=== PATIENT | female | born 1990 | race Caucasian/White ===

== ENCOUNTER → 2019-08-05 | Outpatient (CLI) | payer BC ==
[2019-08-05 10:07] LABS: INR 0.92 (0.85-1.15); PARTIAL THROMBOPLASTIN TIME 25.6 SEC (26.3-35.5); PROTHROMBIN TIME 9.7 SEC (9.6-11.6)
--- NOTE | 2019-08-05 11:00 | NUR ---
U/S GUIDED BIOPSY/FNA LEFT THYROID NODULE PROCEDURE PERFORMED BY DR. CORONADO. PUNCTURE SITE LEFT SIDE NECK. PATIENT TOLERATED PROCEDURE WELL. SPECIMEN X 3 COLLECTED. END OF PROCEDURE AT 1115. BIOPSY NEEDLE REMOVED AND DRESSING APPLIED. NO BLEEDING NOTED. DISCHARGE INSTRUCTIONS GIVEN TO PATIENT AND VERBALIZED UNDERSTANDING. DISCHARGED AT 1135 AMBULATORY. PT STABLE, AAO X 3, WITH NO C/O PAIN.
== END ==
LOC: RAH 09:19
PROVIDERS: ATTEND Otolaryngology Plastic Surgery within the Head & Neck
DX: O99.280 Endocrine, nutritional and metabolic diseases complicating pregnancy, unspecified trimester (principal); E04.1 Nontoxic single thyroid nodule
CPT/HCPCS: 10005; 36415; 85610; 85730; 88172; A4215; 60100; 76942

== ENCOUNTER 2019-08-24 05:02 | Emergency (ER) | payer BC ==
[2019-08-24 05:18] LABS: BASOPHILS % (AUTO) 0.3 % (0.0-5.0); EOSINOPHILS % (AUTO) 1.4 % (0.0-8.0); HEMATOCRIT 34.5 % (36-48); LYMPHOCYTES % (AUTO) 30.3 % (21.0-51.0); MEAN CORPUSCULAR HEMOGLOBIN 30.4 pg (27.0-33.0); MEAN CORPUSCULAR HGB CONC 33.6 g/dL (32.0-36.0); MEAN CORPUSCULAR VOLUME 90.3 fL (79-99); MONOCYTES % (AUTO) 8.8 % (3.0-13.0); NEUTROPHILS % (AUTO) 58.7 % (40.0-77.0); PLATELET COUNT (AUTO) 331 K/uL (130-400); RED BLOOD CELL COUNT(AUTO) 3.82 MIL/uL (4.00-5.50); RED CELL DISTRIBUTION WIDTH 12.6 % (11.0-15.5); WHITE BLOOD COUNT (AUTO) 10.9 K/uL (4.8-10.8)
[2019-08-24 05:26] LABS: CREATININE 0.5 mg/dL (0.5-1.5); POTASSIUM 3.6 mmol/L (3.5-5.1)
[2019-08-24 05:30] LABS: ALBUMIN 3.2 g/dL (3.5-5.0); BILIRUBIN,TOTAL 0.3 mg/dL (0.2-1.0); TOTAL PROTEIN, SERUM 6.8 g/dL (6.0-8.3)
[2019-08-24 05:32] LABS: INR 0.9 (0.85-1.15); PARTIAL THROMBOPLASTIN TIME 26.7 SEC (26.3-35.5); PROTHROMBIN TIME 9.5 SEC (9.6-11.6)
[2019-08-24 05:33] LABS: APPEARANCE,URINE Turbid (CLEAR); BILIRUBIN,URINE Negative (NEGATIVE); COLOR,URINE Yellow (YELLOW); GLUCOSE, URINE (UA) Negative (NEGATIVE); KETONES,URINE Negative (NEGATIVE); LEUKOCYTE ESTERASE ,URINE Negative (NEGATIVE); NITRATE,URINE Negative (NEGATIVE); OCCULT BLOOD,URINE Negative (NEGATIVE); PH,URINE 7.5 (5.0-8.0); PROTEIN,URINE Negative (NEGATIVE)
[2019-08-24 05:48] LABS: BACTERIA,URINE Few /HPF (None Seen); RBC,URINE 0-1 /HPF (0-1); WBC,URINE 0-1 /HPF (0-1)
[2019-08-24 05:49] LABS: AMORPHOUS SEDIMENT,UR Many /LPF (None Seen)
== END 2019-08-24 06:26 | disposition home or self-care (01) ==
LOC: EDH 05:02
DX: O26.892 Other specified pregnancy related conditions, second trimester (principal); R07.89 Other chest pain; R06.02 Shortness of breath; Z79.899 Other long term (current) drug therapy; Z3A.26 26 weeks gestation of pregnancy
CPT/HCPCS: 36415; 80053; 81001; 83690; 84484; 85025; 85378; 85610; 85730; 93005

== ENCOUNTER 2019-11-19 06:12 | Inpatient (IN) | payer BC ==
[~2019-11-19] VITALS: Ht 167.6 cm; Wt 73.5 kg
[2019-11-19] MEDS ORDERED: LACTATED RINGERS 1000ML 1,000 ML IV PRN (06:42)
[2019-11-19] MEDS ORDERED: OXYTOCIN 10 USP UNITS/ML 20 UNIT in LACTATED RINGERS 1000ML 1,000 ML IV SCH (06:45)
[2019-11-19 07:08] LABS: APPEARANCE,URINE Clear (CLEAR); BILIRUBIN,URINE Negative (NEGATIVE); COLOR,URINE Yellow (YELLOW); GLUCOSE, URINE (UA) Negative (NEGATIVE); KETONES,URINE Negative (NEGATIVE); LEUKOCYTE ESTERASE ,URINE Negative (NEGATIVE); NITRATE,URINE Negative (NEGATIVE); OCCULT BLOOD,URINE Negative (NEGATIVE); PH,URINE 6.5 (5.0-8.0); PROTEIN,URINE Negative (NEGATIVE); UROBILINOGEN,URINE 0.2 mg/dL (0.2-1.0)
[2019-11-19] MEDS ORDERED: OXYTOCIN-LR 20 UNITS/1000 ML 1,000 ML IV ONE (07:26)
[2019-11-19 07:28] LABS: HEMATOCRIT 33.9 % (36-48); MEAN CORPUSCULAR HEMOGLOBIN 30.2 pg (27.0-33.0); MEAN CORPUSCULAR HGB CONC 33.9 g/dL (32.0-36.0); PLATELET COUNT (AUTO) 283 K/uL (130-400); RED BLOOD CELL COUNT(AUTO) 3.81 MIL/uL (4.00-5.50); RED CELL DISTRIBUTION WIDTH 12.9 % (11.0-15.5); WHITE BLOOD COUNT (AUTO) 14.4 K/uL (4.8-10.8)
[2019-11-19] MEDS ORDERED: OXYTOCIN-LR 20 UNITS/1000 ML 1,000 ML IV SCH (07:30)
[2019-11-19] MEDS ORDERED: ROPIVACAINE 0.2% 100ML VIAL 100 ML EP SCH (08:45)
[2019-11-19] MEDS ORDERED: PROMETHAZINE HCL 25 MG/ML 1ML AMPULE IM PRN (08:45)
[2019-11-19] MEDS ORDERED: EPHEDRINE SULFATE 50 MG/ML AMPULE IVP PRN (08:45)
[2019-11-19] MEDS ORDERED: LACTATED RINGERS 500 ML 500 ML IV PRN (08:45)
[2019-11-19] MEDS ORDERED: NALOXONE HCL 0.4 MG/1 ML ML IV PRN (08:45)
[2019-11-19] MEDS ORDERED: MEPERIDINE-PF 25 MG/ML SYG IVP PRN (08:45)
[2019-11-19] MEDS ORDERED: LIDOCAINE HCL 2% 20ML ONE (17:00)
[2019-11-19] MEDS ORDERED: ACETAMINOPHEN 325 MG TAB PO PRN (17:45)
[2019-11-19] MEDS ORDERED: MEASLES/MUMPS/RUBELLA VACCINE, LIVE 0.5 ML/VIAL SQ PRN (17:45)
[2019-11-19] MEDS ORDERED: ACETAMINOPHEN-CODEINE 300/30MG TAB PO PRN (17:45)
[2019-11-19] MEDS ORDERED: LANOLIN 30GM OINTMENT TP PRN (17:45)
[2019-11-19] MEDS ORDERED: WITCH HAZEL 1 PAD TP PRN (17:45)
[2019-11-19] MEDS: OXYTOCIN-LR 20 UNITS/1000 ML 1,000 ML IV SCH ×2 (17:45→18:24)
[2019-11-19] MEDS ORDERED: DIPH,PERTUSS(ACELL),TET VAC/PF 0.5 ML VIAL IM PRN (17:45)
[2019-11-19] MEDS ORDERED: BENZOCAINE/LANOLIN/ALOE VERA 60 ML AEROSOL TP PRN (17:45)
[2019-11-19] MEDS: IBUPROFEN 600 MG TABLET PO PRN (18:00)
[2019-11-19 19:25] VITALS: BP 131/75
[2019-11-19] MEDS: DOCUSATE SODIUM 100 MG CAP PO SCH (20:18)
[2019-11-20 00:02] VITALS: BP 133/81
[2019-11-20] MEDS: IBUPROFEN 600 MG TABLET PO PRN ×2 (00:22→09:30)
[2019-11-20] MEDS ORDERED: CETI10CA5 PO (01:05)
[2019-11-20] MEDS ORDERED: ACET325C6 PO (01:05)
[2019-11-20] MEDS ORDERED: PREN-196 PO (01:05)
[2019-11-20 03:19] VITALS: BP 123/66
[2019-11-20 07:40] VITALS: BP 129/72
--- NOTE | 2019-11-20 08:00 | NUR ---
DR. MCKEON ROUNDING ON PATIENT. DISCHARGE POC DISCUSSED. PATIENT MAY BE DISCHARGED THIS AFTERNOON IF PATIENT DESIRES AND BABY GOES HOME.
[2019-11-20 08:10] LABS: HEPATITIS Bs ANTIGEN SCREEN P Negative (Negative)
[2019-11-20] MEDS: DOCUSATE SODIUM 100 MG CAP PO SCH (09:27)
--- NOTE | 2019-11-20 09:30 | NUR ---
PATIENT REEDUCATED ON SITZ BATH. OFFERED PATIENT TO ASSIST WITH SITZ BATH. PATIENT DECLINED STATING SHE WILL DO IT LATER. ADVISED PATIENT TO CALL FOR ASSISTANCE. PATIENT VOICED UNDERSTANDING.
[2019-11-20 12:05] VITALS: BP 135/80
[2019-11-20 16:24] VITALS: BP 126/78
--- NOTE | 2019-11-20 18:10 | NUR ---
PATIENT LEFT UNIT VIA WHEELCHAIR WITH BABY IN ARMS. PERSONAL VEHICLE USED FOR TRANSPORTATION. BABY SECURE IN CARSEAT.
== END 2019-11-20 18:10 | disposition home or self-care (01) | DRG 807 ==
LOC: LDH 06:12 → WSH 19:19 → EDSTATUS 11-25 21:57
PROVIDERS: ADMIT Specialist; ATTEND Specialist
PROC: 10D07Z6 Extraction of Products of Conception, Vacuum, Via Natural or Artificial Opening (ICD-10-PCS; principal; 2019-11-19)
PROC: 0W8NXZZ Division of Female Perineum, External Approach (ICD-10-PCS; 2019-11-19)
PROC: 3E033VJ Introduction of Other Hormone into Peripheral Vein, Percutaneous Approach (ICD-10-PCS; 2019-11-19)
PROC: 10907ZC Drainage of Amniotic Fluid, Therapeutic from Products of Conception, Via Natural or Artificial Opening (ICD-10-PCS; 2019-11-19)
PROC: 3E0234Z Introduction of Serum, Toxoid and Vaccine into Muscle, Percutaneous Approach (ICD-10-PCS; 2019-11-19)
PROC: 3E0134Z Introduction of Serum, Toxoid and Vaccine into Subcutaneous Tissue, Percutaneous Approach (ICD-10-PCS; 2019-11-19)
PROC: 3E0R3BZ Introduction of Anesthetic Agent into Spinal Canal, Percutaneous Approach (ICD-10-PCS; 2019-11-19)
PROC: 00HU33Z Insertion of Infusion Device into Spinal Canal, Percutaneous Approach (ICD-10-PCS; 2019-11-19)
DX: O69.81X0 Labor and delivery complicated by cord around neck, without compression, not applicable or unspecified (principal); Z37.0 Single live birth; Z23 Encounter for immunization; Z3A.39 39 weeks gestation of pregnancy
CPT/HCPCS: 36415; 81003; 85027; 86592; 86850; 86900; 86901; 87340; 90715; A4314; G0378; J2590; J2795; J3490

== ENCOUNTER 2021-07-02 17:32 | Observation (INO) | payer BC ==
[~2021-07-02] VITALS: Ht 167.6 cm; Wt 71.7 kg
[~2021-07-02 17:32] MED LIST: ACET325C6 PO; CETI10CA5 PO; PREN-196 PO
[2021-07-02 17:34] VITALS: BP 124/75
[2021-07-02 18:37] LABS: APPEARANCE,URINE Clear (CLEAR); BILIRUBIN,URINE Negative (NEGATIVE); COLOR,URINE Yellow (YELLOW); GLUCOSE, URINE (UA) Negative (NEGATIVE); KETONES,URINE Negative (NEGATIVE); LEUKOCYTE ESTERASE ,URINE Moderate (NEGATIVE); NITRATE,URINE Negative (NEGATIVE); OCCULT BLOOD,URINE Large (NEGATIVE); PH,URINE 6.5 (5.0-8.0); PROTEIN,URINE Negative (NEGATIVE); UROBILINOGEN,URINE 0.2 mg/dL (0.2-1.0)
[2021-07-02] MEDS: LACTATED RINGERS 1000ML 1,000 ML IV SCH ×2 (18:42→19:47)
[2021-07-02] MEDS: TERBUTALINE SULFATE VIAL 1MG/ML SQ PRN ×3 (18:42→21:02)
[2021-07-02 18:45] LABS: AMPHET/METH SCREEN,URINE NEGATIVE (NEGATIVE); BARBITURATE SCREEN, URINE NEGATIVE (NEGATIVE); BENZODIAZEPINES SCREEN,URINE NEGATIVE (NEGATIVE); CANNABINOID SCREEN,URINE NEGATIVE (NEGATIVE); COCAINE SCREEN,URINE NEGATIVE (NEGATIVE); OPIATE SCREEN,URINE NEGATIVE (NEGATIVE); PHENCYCLIDINE SCREEN,URINE NEGATIVE (NEGATIVE)
[2021-07-02 18:49] LABS: BACTERIA,URINE Rare /HPF (None Seen); RBC,URINE 51-100 /HPF (0-1); SQUAMOUS EPITHELIAL CELL,UR Rare /HPF (0-2)
[2021-07-02] MEDS ORDERED: CEFTRIAXONE 1G VIAL IVP ONE (20:30)
== END 2021-07-03 07:08 | disposition home or self-care (01) ==
LOC: EDH 17:32 → LDH 17:33
PROVIDERS: ADMIT Specialist; ATTEND Specialist
DX: O62.9 Abnormality of forces of labor, unspecified (principal); Z79.899 Other long term (current) drug therapy; Z3A.36 36 weeks gestation of pregnancy
CPT/HCPCS: 59025; 80305; 81001; 87088; 96361 ×2; 96372; 96374; G0378 ×14; J0696; J3105 ×2; J7120 ×3; 96360